=== PATIENT | male | born 1975 | race Caucasian/White ===

== ENCOUNTER 2018-04-11 12:35 | Emergency (ER) | payer SELFPAY ==
[2018-04-11] MEDS: HYDROcodone/APAP 5/325MG 1 TAB TABLET PO (13:30)
== END 2018-04-11 14:20 | disposition home or self-care (01) ==
LOC: ER 12:35
DX: S90.31XA Contusion of right foot, initial encounter (principal); I10 Essential (primary) hypertension; W22.09XA Striking against other stationary object, initial encounter; Y93.6A Activity, physical games generally associated with school recess, summer camp and children; Y92.39 Other specified sports and athletic area as the place of occurrence of the external cause; Y99.8 Other external cause status
CPT/HCPCS: 73630; 99284